=== PATIENT | female | born 1970 | race Two or more races ===

== ENCOUNTER 2019-07-15 18:04 | Emergency (ER) | payer SELFPAY ==
[~2019-07-15] VITALS: Ht 154.9 cm; Wt 60.8 kg
[2019-07-15 20:02] LABS: BILIRUBIN,URINE NEGATIVE (NEG); CLARITY,URINE CLEAR; COLOR,URINE YELLOW; NITRITE,URINE NEGATIVE (NEG); PROTEIN,URINE NEGATIVE (NEG-TRACE)
[2019-07-15 20:07] LABS: HYALINE CASTS, URINE OCCASIONAL /HPF; SQUAMOUS EPITHELIAL CELL,UR MOD /LPF
[2019-07-15 20:08] LABS: BACTERIA,URINE FEW /HPF (0-FEW); RBC,URINE 0 /HPF (0-2)
[2019-07-15] MEDS ORDERED: ONDANSETRON PF 4 MG/2 ML VIAL. IV ONE (20:15)
[2019-07-15] MEDS ORDERED: fentaNYL PF VIAL 100 MCG/2 ML VIAL IVP ONE ×2 (20:15→23:30)
[2019-07-15] MEDS ORDERED: IV NORMAL SALINE 1000ML BAG 1,000 ML IV ONE (20:15)
[2019-07-15 20:31] LABS: BASO # 0.1 x10^3/uL (0.0-0.2); BASO % 1 % (0-3); EOS % 0 % (0-3); HEMOGLOBIN 12.4 g/dL (12.0-15.5); LYMPH # 1.8 x10^3/uL (1.0-4.8); LYMPH % 17 % (24-48); MEAN CORPUSCULAR HEMOGLOBIN 28 pg (25-35); MEAN CORPUSCULAR HGB CONC 34 g/dL (31-37); MEAN CORPUSCULAR VOLUME 83 fL (79-100); MONO # 0.4 x10^3/uL (0.0-1.1); MONO % 4 % (0-9); NEUT # 8.7 x10^3/uL (1.8-7.7); NEUT % 79 % (31-73); PLATELET COUNT 247 x10^3/uL (140-400); RED BLOOD COUNT 4.48 x10^6/uL (3.50-5.40); RED CELL DISTRIBUTION WIDTH 15.1 % (11.5-14.5); WHITE BLOOD COUNT 10.9 x10^3/uL (4.0-11.0)
[2019-07-15 20:38] LABS: CALCIUM 9.1 mg/dL (8.5-10.1); CREATININE 0.8 mg/dL (0.6-1.0); GFR 76.2; POTASSIUM 3.4 mmol/L (3.5-5.1)
[2019-07-15 20:44] LABS: ALBUMIN 3.8 g/dL (3.4-5.0); ALBUMIN/GLOBULIN RATIO 0.9 (1.0-1.7); TOTAL BILIRUBIN 0.5 mg/dL (0.2-1.0)
--- NOTE | 2019-07-15 21:42 | RAD ---
Ultrasound the abdomen limited. HISTORY: Right upper quadrant pain, history of gallstones Ultrasound was used to evaluate the right upper quadrant of the abdomen. Pancreas is poorly visualized, portions of the head and proximal body were normal. Pancreatic duct at the head of the pancreas measured 6 mm upper normal. Vena cava at the liver was unremarkable. Liver was within normal limits in size and appearance although incompletely evaluated. Gallbladder wall was marginally thickened at 3.67 mm. Gallbladder was mildly distended. Small gallstones were noted with shadowing. At the tara hepatis the common duct was 7.7 mm which was mildly prominent. Right kidney is 10.5 cm in length without a mass or hydronephrosis. IMPRESSION: 1. Cholelithiasis. 2. Mildly dilated common duct. 3. No right hydronephrosis. 4. Poor visualization of the pancreas. Electronically signed by: Chidi Desai MD (07/15/2019 9:39 PM) [facility]
[2019-07-15 23:04] VITALS: BP 115/74
[2019-07-15] MEDS ORDERED: ONDA4TAB12 PO (23:51)
[2019-07-15] MEDS ORDERED: HYDR-2761 PO (23:51)
--- NOTE | 2019-07-15 23:51 | PHYS DOC ---
Past Medical History Past Medical History: No Pertinent History (BURAK ELLIS APRN) Past Surgical History: (BURAK ELLIS APRN) Alcohol Use: None Drug Use: None (BURAK ELLIS APRN) Attending Signature I have participated in the care of this patient and I have reviewed and agree with all pertinent clinical information above including history, exam, and recommendations. (LENO HAYES MD) Adult General Chief Complaint Chief Complaint: FLANK PAIN HPI HPI Patient is a 48 year old female who presents to the ED today complaining of 10 out of 10 right upper quadrant abdominal pain for 4 months. Patient also complains of an episode of vomiting. She reports she's been seen by the PCP for this pain and was diagnosed with gallstones. Patient states the pain is worse after eating. She took hydrocodone with slight relief. (BURAK ELLIS APRN) Review of Systems Review of Systems Constitutional: Denies fever or chills [] Eyes: Denies change in visual acuity, redness, or eye pain [] HENT: Denies nasal congestion or sore throat [] Respiratory: Denies cough or shortness of breath [] Cardiovascular: No additional information not addressed in HPI [] GI: Reports right upper quadrant abdominal pain with vomiting, denies bloody stools or diarrhea [] : Denies dysuria or hematuria [] Musculoskeletal: Denies back pain or joint pain [] Integument: Denies rash or skin lesions [] Neurologic: Denies headache, focal weakness or sensory changes [] All other systems were reviewed and found to be within normal limits, except as documented in this note. (BURAK ELLIS APRN) Current Medications Current Medications Current Medications Medications (Trade) Dose Ordered Sig/Mai Start Time Stop Time Status Last Admin Dose Admin Fentanyl Citrate (Fentanyl 2ml Vial) 50 mcg 1X ONCE 07/15/19 23:30 07/15/19 23:31 DC 07/15/19 23:31 50 MCG Ondansetron HCl (Zofran) 4 mg 1X ONCE 07/15/19 20:15 07/15/19 20:29 DC 07/15/19 20:46 4 MG Sodium Chloride 1,000 ml @ 1,000 mls/hr 1X ONCE 07/15/19 20:15 07/15/19 21:14 DC 07/15/19 20:45 1,000 MLS/HR (LENO HAYES MD) Allergies Allergies Allergies Coded Allergies Type Severity Reaction Last Updated Verified No Known Drug Allergies 07/15/19 No (LENO HAYES MD) Physical Exam Physical Exam Constitutional: Well developed, well nourished, no acute distress, non-toxic appearance. [] HENT: Normocephalic, atraumatic, bilateral external ears normal, oropharynx moist, no oral exudates, nose normal. [] Eyes: PERRLA, EOMI, conjunctiva normal, no discharge. [] Neck: Normal range of motion, no tenderness, supple, no stridor. [] Cardiovascular:Heart rate regular rhythm, no murmur [] Lungs & Thorax: Bilateral breath sounds clear to auscultation [] Abdomen: Bowel sounds normal, soft, slight tenderness on palpation of the right upper quadrant with negative Mantilla sign, no right lower quadrant tenderness, no masses, no pulsatile masses. [] Skin: Warm, dry, no erythema, no rash. [] Back: No tenderness, no CVA tenderness. [] Extremities: No tenderness, no cyanosis, no clubbing, ROM intact, no edema. [] Neurologic: Alert and oriented X 3, normal motor function, normal sensory function, no focal deficits noted. [] Psychologic: Affect normal, judgement normal, mood normal. [] (BURAK ELLIS APRN) Current Patient Data Vital Signs Vital Signs Date Time Temp Pulse Resp B/P (MAP) Pulse Ox O2 Delivery O2 Flow Rate FiO2 07/15/19 23:31 16 100 Room Air 07/15/19 23:04 54 115/74 (88) 07/15/19 20:59 97.6 97.6 (LENO HAYES MD) Lab Values Laboratory Tests Test 07/15/19 19:33 07/15/19 20:20 Urine Collection Type Unknown Urine Color Yellow Urine Clarity Clear Urine pH 6.0 Urine Specific Maynard 1.020 Urine Protein Negative mg/dL (NEG-TRACE) Urine Glucose (UA) Negative mg/dL (NEG) Urine Ketones (Stick) 15 mg/dL (NEG) Urine Blood Negative (NEG) Urine Nitrite Negative (NEG) Urine Bilirubin Negative (NEG) Urine Urobilinogen Dipstick 1.0 mg/dL (0.2 mg/dL) Urine Leukocyte Esterase Negative (NEG) Urine RBC 0 /HPF (0-2) Urine WBC 1-4 /HPF (0-4) Urine Squamous Epithelial Cells Mod /LPF Urine Bacteria Few /HPF (0-FEW) Urine Hyaline Casts Occasional /HPF Urine Mucus Mod /LPF White Blood Count 10.9 x10^3/uL (4.0-11.0) Red Blood Count 4.48 x10^6/uL (3.50-5.40) Hemoglobin 12.4 g/dL (12.0-15.5) Hematocrit 37.0 % (36.0-47.0) Mean Corpuscular Volume 83 fL (79-100) Mean Corpuscular Hemoglobin 28 pg (25-35) Mean Corpuscular Hemoglobin Concent 34 g/dL (31-37) Red Cell Distribution Width 15.1 % (11.5-14.5) H Platelet Count 247 x10^3/uL (140-400) Neutrophils (%) (Auto) 79 % (31-73) H Lymphocytes (%) (Auto) 17 % (24-48) L Monocytes (%) (Auto) 4 % (0-9) Eosinophils (%) (Auto) 0 % (0-3) Basophils (%) (Auto) 1 % (0-3) Neutrophils # (Auto) 8.7 x10^3/uL (1.8-7.7) H Lymphocytes # (Auto) 1.8 x10^3/uL (1.0-4.8) Monocytes # (Auto) 0.4 x10^3/uL (0.0-1.1) Eosinophils # (Auto) 0.0 x10^3/uL (0.0-0.7) Basophils # (Auto) 0.1 x10^3/uL (0.0-0.2) Sodium Level 139 mmol/L (136-145) Potassium Level 3.4 mmol/L (3.5-5.1) L Chloride Level 103 mmol/L (98-107) Carbon Dioxide Level 21 mmol/L (21-32) Anion Gap 15 (6-14) H Blood Urea Nitrogen 15 mg/dL (7-20) Creatinine 0.8 mg/dL (0.6-1.0) Estimated GFR (Cockcroft-Gault) 76.2 BUN/Creatinine Ratio 19 (6-20) Glucose Level 207 mg/dL (70-99) H Calcium Level 9.1 mg/dL (8.5-10.1) Total Bilirubin 0.5 mg/dL (0.2-1.0) Aspartate Amino Transferase (AST) 30 U/L (15-37) Alanine Aminotransferase (ALT) 39 U/L (14-59) Alkaline Phosphatase 198 U/L (46-116) H Total Protein 8.0 g/dL (6.4-8.2) Albumin 3.8 g/dL (3.4-5.0) Albumin/Globulin Ratio 0.9 (1.0-1.7) L Lipase 138 U/L (73-393) Laboratory Tests 07/15/19 20:20 Laboratory Tests 07/15/19 20:20 (LENO HAYES MD) EKG EKG [] (BURAK ELLIS APRN) Radiology/Procedures Radiology/Procedures []PROCEDURE: ABDOMEN LTD Ultrasound the abdomen limited. HISTORY: Right upper quadrant pain, history of gallstones Ultrasound was used to evaluate the right upper quadrant of the abdomen. Pancreas is poorly visualized, portions of the head and proximal body were normal. Pancreatic duct at the head of the pancreas measured 6 mm upper normal. Vena cava at the liver was unremarkable. Liver was within normal limits in size and appearance although incompletely evaluated. Gallbladder wall was marginally thickened at 3.67 mm. Gallbladder was mildly distended. Small gallstones were noted with shadowing. At the tara hepatis the common duct was 7.7 mm which was mildly prominent. Right kidney is 10.5 cm in length without a mass or hydronephrosis. IMPRESSION: 1. Cholelithiasis. 2. Mildly dilated common duct. 3. No right hydronephrosis. 4. Poor visualization of the pancreas. Electronically signed by: Chidi Desai MD (07/15/2019 9:39 PM) [facility] DICTATED and SIGNED BY: CHIDI DESAI MD DATE: 07/15/192138 (BURAK ELLIS APRN) Course & Med Decision Making Course & Med Decision Making Pertinent Labs and Imaging studies reviewed. (See chart for details) This is a 48-year-old female patient presented to the ED today with right upper quadrant abdominal pain for 4 months. Has history of gallstones. CBC with a normal, CMP with AST and ALT. ALK 198. Right upper quadrant abdominal ultrasound noted for cholelithiasis and a mildly dilated common duct. off note patient's pain is well controlled right now, she is requesting to go home. She is given prescription for hydrocodone and Zofran. Provided general surgery for follow-up as an outpatient. (BURAK ELLIS APRN) Dragon Disclaimer Dragon Disclaimer This electronic medical record was generated, in whole or in part, using a voice recognition dictation system. (BURAK ELLIS APRN) Departure Departure Impression: Primary Impression: Gall stones Disposition: HOME, SELF-CARE Condition: STABLE Referrals: UNKNOWN PCP NAME (PCP) BRONSON VILLAFANA MD follow up in 1 week Patient Instructions: Cholelithiasis, [id number] Additional Instructions: You were seen in the emergency room and noted to have gallstones. Please contact the provided general surgeon in the course of this week and follow-up. Also follow-up with your primary care doctor. Take the pain medicine prescribed as needed Scripts Hydrocodone Bit/Acetaminophen (HYDROCODONE-APAP 5-325 ) 1 Tab Tablet 1 TAB PO PRN Q6HRS PRN for PAIN, #20 TAB 0 Refills Prov: BURAK ELLIS APRN 07/15/19 Ondansetron (ONDANSETRON ODT) 4 Mg Tab.rapdis 1 TAB PO PRN Q6-8HRS, #16 TAB Prov: BURAK ELLIS APRN 07/15/19 BURAK ELLIS APRN Jul 15, 2019 23:51 LENO HAYES MD Jul 17, 2019 07:50
== END 2019-07-16 00:07 | disposition home or self-care (01) ==
LOC: ER 18:04
DX: K80.50 Calculus of bile duct without cholangitis or cholecystitis without obstruction (principal); R11.10 Vomiting, unspecified; R10.11 Right upper quadrant pain; Z87.19 Personal history of other diseases of the digestive system; Z98.890 Other specified postprocedural states
CPT/HCPCS: 36415; 76705; 80053; 81001; 83690; 85025; 96361; 96374; 96375; 99285; J2405; J3010; J7030

== ENCOUNTER 2019-07-29 06:23 | Day surgery (SDC) | payer SELFPAY ==
[~2019-07-29] VITALS: Ht 152.4 cm; Wt 66.0 kg
[~2019-07-29 06:23] MED LIST: HYDR-2761 PO; ONDA4TAB12 PO; ceFAZolin SODIUM IV Push 1 GM VIAL. IVP PRN
[2019-07-29] MEDS ORDERED: OMEP20CA16 PO (06:59)
[2019-07-29] MEDS ORDERED: CALC1CAP7 PO (06:59)
[2019-07-29] MEDS ORDERED: IV RINGERS,LACTATED 1000ML 1,000 ML IV SCH (07:00)
[2019-07-29] MEDS ORDERED: PROCHLORPERAZINE 10 MG/2 ML VIAL. IV PRN (07:00)
[2019-07-29] MEDS ORDERED: LIDOCAINE 1% PF 2 ML VIAL. ID PRN (07:00)
[2019-07-29] MEDS ORDERED: MORPHINE SULFATE 2 MG/ML VIAL. IV PRN (07:00)
[2019-07-29] MEDS ORDERED: HYDROmorphone 2 MG/ML VIAL IV PRN (07:00)
[2019-07-29] MEDS ORDERED: ONDANSETRON PF 4 MG/2 ML VIAL. IV PRN (07:00)
[2019-07-29] MEDS ORDERED: IOHEXOL 300 MG/ML 50 ML VIAL. ONE (07:26)
[2019-07-29] MEDS ORDERED: BUPIVACAINE-EPI 0.5%-1:200000 MPF 30 ML VIAL. ONE (07:26)
[2019-07-29] MEDS ORDERED: GLUCAGON,HUMAN RECOMBINANT 1 MG/ML VIAL. ONE (07:26)
[2019-07-29] MEDS ORDERED: SURGICEL HEMOSTAT 4X8 EACH. ONE (07:27)
[2019-07-29] MEDS ORDERED: FAMOTIDINE 20 MG/2 ML VIAL ONE ×2 (07:41→07:43)
[2019-07-29] MEDS ORDERED: fentaNYL PF VIAL 100 MCG/2 ML VIAL ONE ×3 (07:41→11:31)
[2019-07-29] MEDS ORDERED: ROCURONIUM 50 MG/5 ML VIAL. ONE (07:41)
[2019-07-29] MEDS ORDERED: DEXAMETHASONE SOD PHOS 4 MG/ML VIAL ONE (07:42)
[2019-07-29] MEDS ORDERED: SEVOFLURANE 61 TO 120 MINUTES. IH ONE (07:42)
[2019-07-29] MEDS ORDERED: LIDOCAINE 2% PF 5 ML VIAL. ONE (07:42)
[2019-07-29] MEDS ORDERED: ONDANSETRON PF 4 MG/2 ML VIAL. ONE (07:42)
[2019-07-29] MEDS ORDERED: PROPOFOL 20 ML IV ONE (07:42)
[2019-07-29] MEDS ORDERED: GLYCOPYRROLATE 1 MG/5 ML VIAL. ONE (07:42)
[2019-07-29] MEDS ORDERED: NEOSTIGMINE METHYLSULFATE 5 MG/5 ML SYRINGE. ONE (07:42)
[2019-07-29] MEDS ORDERED: KETOROLAC 30 MG/ML VIAL. ONE (07:43)
--- NOTE | 2019-07-29 09:00 | RAD ---
Intraoperative cholangiogram. INDICATION: Cholangiogram in OR with C-arm. Patient with history of cholelithiasis. TECHNIQUE: 4 images of the right upper quadrant abdomen were acquired intraoperatively with a total fluoroscopy time of 0.2 minutes. FINDINGS: Images over the right upper quadrant abdomen show laparoscopic ports and a catheter projecting over the cholecystectomy bed with surgical clips in place. Subsequent images show filling of the cystic duct stump, the common bile duct, and finally, the intrahepatic biliary radicles. There is opacification of the duodenum in the distal second portion but no filling defects in the hepatobiliary tree in the included field of view are seen to suggest a retained stone.. There is no extravasation of bile, and no failure of filling of the left or right hepatic ducts is shown. IMPRESSION: Intraoperative cholangiogram showing no obvious filling defects suggestive of a retained stone. Please see the operative report for additional details. Electronically signed by: Gabe Fallon MD (07/29/2019 8:57 AM) [facility]
--- NOTE | 2019-07-29 09:08 | PDOC ---
BRIEF OPERATIVE NOTE Date: Jul 29, 2019 Pre-Op Diagnosis symptomatic cholelithiasis Post-Op Diagnosis same, omental adhesions Procedure Performed l/s dewayne with WHIT iglesias Surgeon Ricardo Anesthesia Type: General Blood Loss 10cc IV Fluid 900cc Specimens Obtained GB Findings supple GB with omental adhesions, omental adhesions to midline around umbilicus Complications none REINA SWAIN MD Jul 29, 2019 09:08
--- NOTE | 2019-07-29 09:10 | DISCH ---
DISCHARGE INSTRUCTIONS Condition on Discharge Condition on Discharge: Stable Activity After Discharge Activity Instructions for Disc: Activity as tolerated, Avoid exertion Lifting Instructions after Dis: No heavy lifting Driving Instructions after Dis: Do not drive Diet after Discharge Diet after Discharge: Regular Wound Incision Care Wound/Incision Care: Ice to area for comfort Other wound/incision instructi: November shower Monday Follow-Up Follow up with: Ricarod next week REINA SWAIN MD Jul 29, 2019 09:10
[2019-07-29] MEDS ORDERED: HYDR-3164 PO ×2 (09:18→09:23)
[2019-07-29] MEDS ORDERED: DOCU50CA9 PO (09:44)
[2019-07-29] MEDS ORDERED: HYDROcodone/APAP 5/325MG 1 TAB TABLET PO ONE (09:45)
[2019-07-29] MEDS: fentaNYL PF VIAL 100 MCG/2 ML VIAL IV PRN ×4 (09:49→11:50)
[2019-07-29 11:34] VITALS: BP 102/56
--- NOTE | 2019-07-29 15:02 | OP ---
DATE OF SURGERY: 07/29/2019 PREOPERATIVE DIAGNOSIS: Symptomatic cholelithiasis. POSTOPERATIVE DIAGNOSIS: Symptomatic cholelithiasis with omental adhesions. PROCEDURE: Laparoscopic cholecystectomy with cholangiogram, lysis of adhesions. SURGEON: Reina Swain MD ANESTHESIA: General endotracheal. ESTIMATED BLOOD LOSS: 10 mL. INTRAVENOUS FLUIDS: 900 mL. INDICATIONS: The patient is a 48-year-old with symptomatic cholelithiasis, brought for cholecystectomy. OPERATIVE FINDINGS: The gallbladder was supple with multiple stones. There were omental adhesions to the gallbladder and a strand in the midline near the umbilicus. Visual inspection of the remainder of the abdomen failed to reveal obvious abnormalities. DESCRIPTION OF PROCEDURE: The patient brought to the operating suite, given a general endotracheal anesthetic and the abdomen prepped and draped in usual sterile fashion. A supraumbilical incision was infiltrated with local anesthetic, incised and a 5 mm Visiport used to gain access into the abdominal cavity, taking care to avoid injury to abdominal contents. Pneumoperitoneum established. Camera inserted. Inspection carried out with results as noted above. With the table in reverse Trendelenburg rolled to the left, the epigastric, midclavicular, and lateral ports were placed under direct vision. The gallbladder was retracted superolaterally and with careful blunt and cautery dissection, the omental adhesions wrapping the gallbladder were taken down to expose it in its entirety, being careful to avoid injury to the adjacent bowel. The cystic duct and cystic artery were identified. The duct was clipped on the gallbladder side. Cholangiograms were made. These were normal. In light of this, the catheter was removed. The cystic duct was clipped x 3 and divided, taking care to avoid injury or compromise the common duct. An anterior and small posterior vessel were identified, clipped and divided and gallbladder freed from the bed with cautery dissection and placed in an EndoCatch bag. Good hemostasis was present in the fossa. No evidence of bile leak seen. Table returned to level. Using the LigaSure, the omental adhesions to the midline near the umbilicus were taken down, taking care to avoid any adjacent bowel. Gallbladder delivered through the epigastric incision, which was then closed with 0 Vicryl suture. Intra-abdominal pressure decreased to 6 cm of water. No bleeding from the epigastric closure or from the midclavicular or lateral port sites after their removal. Abdomen decompressed, camera slowly removed, no bleeding seen. Skin incisions closed with subcuticular 4-0 Monocryl. Steri-Strips and sterile dressings applied. The patient was awakened from her anesthetic and taken to the recovery room in satisfactory condition. REINA SWAIN MD DR: SERG/jeana JOB#: [id number] / [id number]
== END 2019-07-29 12:10 | disposition home or self-care (01) ==
LOC: SURG 06:23
PROVIDERS: ATTEND Surgery
DX: K80.20 Calculus of gallbladder without cholecystitis without obstruction (principal); K21.9 Gastro-esophageal reflux disease without esophagitis; F41.9 Anxiety disorder, unspecified; Z72.89 Other problems related to lifestyle; Z98.890 Other specified postprocedural states
CPT/HCPCS: 47563; 74300; J0690; J1100; J1885; J2001; J2405; J2704; J2710; J3010; J3490; Q9967; A7015; J1610; J7030